=== PATIENT | male | born 1980 | race Two or more races ===

== ENCOUNTER 2021-05-14 08:54 | Outpatient (CLI) | payer OTHER | END 2021-05-14 09:01 | disposition home or self-care (01) | LOC: RAD 08:54 | DX: M54.2 Cervicalgia (principal); M25.561 Pain in right knee; M79.642 Pain in left hand; M25.532 Pain in left wrist; R20.1 Hypoesthesia of skin ==

== ENCOUNTER 2021-05-20 12:21 | Outpatient (CLI) | payer OTHER | END 2021-05-20 13:35 | disposition home or self-care (01) | LOC: MRI 12:21 | DX: M79.642 Pain in left hand (principal); M79.641 Pain in right hand | CPT/HCPCS: 73221 ==